=== PATIENT | female | born 1950 | race African-American/Black ===

== ENCOUNTER 2018-11-17 11:57 | Emergency (ER) | payer OTHER | END 2018-11-17 12:41 | disposition home or self-care (01) | LOC: BURERS 11:57 | DX: I10 Essential (primary) hypertension (principal); Z76.0 Encounter for issue of repeat prescription | CPT/HCPCS: 93005 ==

== ENCOUNTER 2019-01-10 13:28 | Emergency (ER) | payer OTHER, MEDICARE ==
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
--- NOTE | 2019-01-10 14:28 | CT ---
CT BRAIN WITHOUT CONTRAST: Date: 01/10/[address] of the brain shows no acute intracranial findings. No intracranial bleeding or extra-axial hematoma seen. The ventricles are normal in size with no shift. There is no sign of stroke, mass, or edema. There is a large right frontal scalp hematoma. The underlying frontal bone appears intact, as does the rest of the calvarium. The sphenoid sinus and mastoid air cells are clear. IMPRESSION: Soft tissue hematoma in the right frontal region. No acute intracranial findings. POS: HOME
[2019-01-10] MEDS ORDERED: Adacel (T-DAP) 0.5 ML SYRINGE ONE (15:11)
== END 2019-01-10 15:25 | disposition short-term general hospital (02) ==
LOC: BURERS 13:28
DX: S01.111A Laceration without foreign body of right eyelid and periocular area, initial encounter (principal); I10 Essential (primary) hypertension; Z79.899 Other long term (current) drug therapy; W01.0XXA Fall on same level from slipping, tripping and stumbling without subsequent striking against object, initial encounter
CPT/HCPCS: 70460; 70486; 90471; 90715

== ENCOUNTER 2019-09-29 10:56 | Emergency (ER) | payer MEDICARE, OTHER ==
[2019-09-29] MEDS ORDERED: Adacel (T-DAP) 0.5 ML SYRINGE ONE (11:18)
[2019-09-29] MEDS ORDERED: Bacitracin 1 PK ONE (11:18)
[2019-09-29] MEDS ORDERED: Sulfameth/Trimethoprim DS 800-160mg TAB ONE (11:32)
--- NOTE | 2019-09-29 17:14 | RAD ---
LEFT ELBOW FOUR VIEWS: 09/29/19 If joint fluid is present, it is small in degree. No acute fracture was identified. There is some bon y spurring on the coronoid process. IMPRESSION: No acute bony changes. POS: HOME
== END 2019-09-29 11:49 | disposition home or self-care (01) ==
LOC: BURERS 10:56
DX: S51.012A Laceration without foreign body of left elbow, initial encounter (principal); L03.114 Cellulitis of left upper limb; I10 Essential (primary) hypertension; Z79.899 Other long term (current) drug therapy; W17.89XA Other fall from one level to another, initial encounter
CPT/HCPCS: 90471; 90715

== ENCOUNTER 2022-05-25 14:12 | Emergency (ER) | payer OTHER, SELFPAY ==
[2022-05-25] MEDS ORDERED: DOPamine 400 MG/D5W 250 ML 250 ML ONE (14:26)
[2022-05-25] MEDS ORDERED: EPINEPHrine 1 MG/ML VIAL ONE (14:36)
[2022-05-25 15:12] LABS: Base Excess-Venous -21.2 mmol/L (-2.0 to 3.0); Bicarbonate (HCO3v) 9.4 mmol/L (22.0-28.0); CO2 Tension (PvCO2) 45.4 mmHg (42.0-51.0); Hemoglobin - Calc 5.8 g/dL (12.0-16.0); Sodium 140 mmol/L (138-145); vO2 Saturation-calc 97.4 % (60.0-85.0)
[2022-05-25 15:13] LABS: Calcium, Ionized 1.02 mmol/L (1.15-1.33); Chloride 108 mmol/L (98-107); T. Carbon Dioxide 10.8 mmol/L (22.0-28.0)
[2022-05-25 15:28] LABS: Hemoglobin 3.9 g/dL (12.0-16.0); Mean Corpuscular HGB CONC 27.8 g/dL (32.0-36.0); Mean Corpuscular Hemoglobin 18.6 pg (27.0-31.0); Mean Corpuscular Volume 66.7 fl (78.0-98.0); Mean Platelet Volume 4.4 fL (7.4-10.4); Platelet Count 63 10x3/uL (130-400); RBC Distribution Width 20.2 % (11.5-14.5); Red Blood Cell (RBC) Count 2.09 mill/uL (4.20-5.40); White Blood Cell (WBC) Count 4.3 10x3/uL (4.8-10.8)
[2022-05-25 15:43] LABS: ALT (SGPT) 74 U/L (8-55); AST (SGOT) 296 U/L (5-34); Albumin 1.7 g/dL (3.4-4.8); Alkaline Phosphatase 117 U/L (40-110); Anion Gap 30 mmol/L (10-20); BUN (Urea Nitrogen) 9 mg/dL (9.8-20.1); Bilirubin, Total 1.6 mg/dL (0.2-1.2); Calc. Creatinine Clearance 0 mL/min (70-130); Calcium 7.3 mg/dL (7.8-10.44); Chloride 109 mmol/L (98-107); Estimated GFR 76; Glucose 117 mg/dL (83-110); Magnesium 2.7 mg/dL (1.6-2.6); Potassium 5.1 mmol/L (3.5-5.1); Protein, Total 3.7 g/dL (5.8-8.1); Sodium 143 mmol/L (136-145)
[2022-05-25 15:49] LABS: Carbon Dioxide 9 mmol/L (23-31)
[2022-05-25 15:51] LABS: #Lymphocytes 1.7 thou/uL (1.20-3.40); #Monocytes 0.1 thou/uL (0.11-0.59); #Neutrophils 2.4 thou/uL (1.40-6.50); %Basophils 0.9 % (0.0-1.0); %Eosinophils 0.4 % (0.0-10.0); %Lymphocytes 39.1 % (21.0-51.0); %Monocytes 3.1 % (0.0-10.0); %Neutrophils 56.6 % (42.0-75.0); Hypochromia SLIGHT = 6-15 cells (100X) (0-5/hpf); MDiff Complete? YES; Microcytosis SLIGHT = 6-15 cells (100X) (0-5/hpf); Platelet Morphology Comment Appears Decreased; Reflex for Review?? NO
[2022-05-25 15:56] LABS: Prothrombin Time 32.4 sec (12.0-14.7)
[2022-05-25 15:59] LABS: CKMB 11.3 ng/mL (0-6.6)
[2022-05-25 16:02] LABS: PTT 220.5 sec (22.9-36.1)
[2022-05-25] MEDS ORDERED: EPINEPHrine 1 MG/10 ML Abboject SYRINGE ONE (16:39)
[2022-05-25] MEDS ORDERED: Calcium Chloride 1 GM/10 ML Abboject SYRINGE ONE (16:39)
[2022-05-25] MEDS ORDERED: Sodium Bicarb 50 MEQ/50 ML Abboject 8.4% SYRINGE ONE (16:39)
== END 2022-05-25 15:45 | disposition short-term general hospital (02) ==
LOC: BURERS 14:12
DX: I46.9 Cardiac arrest, cause unspecified (principal); D64.9 Anemia, unspecified; E87.20 Acidosis, unspecified
CPT/HCPCS: 36415; 36430; 36556; 51702; 71045; 80053; 82330; 82435; 82553; 82803; 83605; 83735; 84132; 84295; 84484; 85014; 85025; 85610; 85730; 86850; 86900; 86901; 92950; 93005; 96365; 96374; J0171; J1265; P9016